=== PATIENT | female | born 1985 | race Caucasian/White ===

== ENCOUNTER 2024-03-12 08:40 | Emergency (ER) | payer BC ==
--- OUTSIDE RECORDS SUMMARY | 2024-03-12 08:43 | XMS REPORT | Continuity of Care Document ---
Author Name Unknown Address [address] [place] [address] thconnect Address [address] [facility] [address] [place] [address] Care Team Providers Care Cashier Self Service Gasoline Name Role Phone GC_GCBZW_Kadiyala_S Attending Clinician Unavaila ble GC_GCBZW_McIntire_E Attending Clinician Unavaila ble GC_GCBZW_Kadiyala_S Admitting Clinician Unavaila ble GC_GCBZW_McIntire_E Admitting Clinician Unavaila ble Payers Payer Name Policy Type Policy Number Effective Date Expirati on Date Source [place] [id number] 2019 00:00:00 Social History Smoking Status Start Date Stop Date Source Heavy Tobacco Smoker [facility] Medications Ordered Medication Name Filled Medication Name Start Date Stop Date Current Medication? Ordering Clinician Indication Dosage Frequency Signature (SIG) Comments Components Source ashwagandha extract ashwagandha extract No ashwagandh a extract [facility] ibuprofen 200 mg tablet Take 1 tablet every 6 hours by oral route. ibuprofen 200 mg tablet Take 1 tablet every 6 hours by oral route. No 1 Q6H ibuprofen 200 mg tablet Take 1 tablet every 6 hours by oral route. [facility] metronidazo le 500 mg tablet Take 1 tablet every 12 hours by oral route for 7 days. metronidazo le 500 mg tablet Take 1 tablet every 12 hours by oral route for 7 days. No 1 Q12H metronidaz ole 500 mg tablet Take 1 tablet every 12 hours by oral route for 7 days. [facility] ParaGard T 380A 380 square mm intrauterin e device Take by intrauterin e route. ParaGard T 380A 380 square mm intrauterin e device Take by intrauterin e route. No ParaGard T 380A 380 square mm intrauteri ne device Take by intrauteri ne route. [facility] Vital Signs Vital Name Observation Time Observation Value Comments S ource Height 2024-03-09 00:00:00 72 [in_i] [facility] Body Weight 2024-03-09 00:00:00 332.2 [lb_av] [facility] BMI (Body Mass Index) 2024-03-09 00:00:00 45.1 kg/m2 [facility] BP Systolic 2024-03-09 00:00:00 123 mm[Hg] [facility] BP Diastolic 2024-03-09 00:00:00 82 mm[Hg] [facility] Procedures Procedure Date / Time Performed Performing Clinicia n Source MAMMO, screening, digital, bilateral 2024-03-09 00:00:00 [facility] Encounters Start Date/Time End Date/Time Encounter Type Admission Type Attending Clinicians Care Facility Care Department Encounter ID Source 2024-03-09 00:00:00 2024-03-09 00:00:00 FRANCISCO JAVIER Hastings: [address] [place] [address] Dr Hutson, [address], [place] [address] , Ph. [facility] - GC_GCBZW_[facility]* [id number] [facility] [place] 2023-02-04 00:00:00 2023-02-04 00:00:00 Outpatient GC_GCBZW_Ka diyala_S [facility] [id number] [facility] [place] 2023-02-01 00:00:00 2023-02-01 00:00:00 Outpatient GC_GCBZW_Ka diyala_S [facility] [id number] [facility] [place] 2023-02-01 00:00:00 2023-02-01 00:00:00 Outpatient GC_GCBZW_Ka diyala_S [facility] [id number] [facility] [place] 2022-12-22 00:00:00 2022-12-22 00:00:00 Outpatient GC_GCBZW_Mc Intire_E [facility] [id number] [facility] [place] 2022-12-22 00:00:00 2022-12-22 00:00:00 Outpatient GC_GCBZW_Mc Intire_E PRIV PRIV [id number] [facility] Results Test Description Test Time Test Comments Results Result Co mments Source [facility] [place]
[2024-03-12 10:08] LABS: Absolute Basophils 0.1 K/uL (0-0.5); Absolute Eosinophils 0.4 K/uL (0-0.5); Absolute Monocytes 0.5 K/uL (0.1-1.3); Absolute Neutrophil 4.9 K/uL (1.8-8.0); Basophils % 0.7 % (0-1.3); Eosinophils % 4.8 % (0-4.4); Hematocrit 36.8 % (36.0-45.0); Lymphocytes % 25.1 % (15.3-44.8); MCH 27.1 pg (27.0-35.0); MCHC 32.6 g/dL (32.0-36.0); MPV 7.7 fL (7.6-11.3); Monocytes % 6.7 % (3.3-12.3); Neutrophils % 62.7 % (41.7-73.7); Nucleated Red Blood Cells % 0.1 % (0-0); Platelets 299 thou/uL (152-406); RBC Red Blood Cell Count 4.43 M/uL (3.86-4.86); Red Cell Distribution Width 14.4 % (12.1-15.2)
[2024-03-12 10:10] LABS: Specific Gravity < 1.005 (1.005-1.030)
[2024-03-12 10:11] LABS: Specific Gravity < 1.005 (1.005-1.030); Sqamous Epithelial None Seen /HPF (None Seen); Urine Bacteria <20 /HPF (<20); Urine Bilirubin NEGATIVE (Negative); Urine Blood Negative (Negative); Urine Clarity Clear (Clear); Urine Color Colorless (Yellow); Urine Culture Reflex Order NOT NEEDED; Urine Glucose NEGATIVE (Negative); Urine Ketones NEGATIVE (Negative); Urine Microscopic Reflex YN ORDER UMIC; Urine Nitrite NEGATIVE (Negative); Urine Protein NEGATIVE (Negative); Urine RBC None Seen /HPF (None Seen); Urine Urobilinogen Normal (Normal); Urine WBC None Seen /HPF (<5); Urine pH 6.5 (5.0-7.0)
[2024-03-12 10:34] LABS: Albumin 3.4 g/dL (3.4-5.0); Albumin/Globulin Ratio 0.9 (1.1-1.8); Bilirubin Total 0.3 mg/dL (0.2-1.0); Globulin 3.9 g/dL (2.3-3.5); Protein, Total 7.3 g/dL (6.4-8.2)
--- NOTE | 2024-03-12 10:47 | RAD REPORT ---
EXAMINATION: CT ABDOMEN AND PELVIS WITH CONTRAST CLINICAL INDICATION: ABD PAIN TECHNIQUE: CT abdomen and pelvis was performed, after the administration of IV contrast, as per [facility] protocol. Axial, sagittal and coronal reconstructions were obtained. One or more of the following dose reduction techniques were used: Automated exposure control, adjustment of the mA and k V according to patient size, and iterative reconstruction. Unless otherwise specified, incidental findings do not require dedicated imaging follow-up. COMPARISON: No prior exam. FINDINGS: LOWER CHEST: Calcified granuloma is seen in the right lung base laterally. LIVER: Normal in size and contour. No focal lesion. Cholelithiasis. SPLEEN: Normal size. No focal lesion. PANCREAS: No mass, ductal dilation, or diane-pancreatic fluid. ADRENALS: Normal; no mass. KIDNEYS: Normal size and contour. No hydronephrosis. GASTROINTESTINAL TRACT: No evidence of free air, significant intra-abdominal free fluid, bowel obstru ction or abscess. APPENDIX: Normal appendix. LYMPH NODES: No lymphadenopathy. MUSCULOSKELETAL: Mild lower lumbar degenerative changes. ADDITIONAL FINDINGS: IUD is noted. IMPRESSION: No acute or concerning abnormalities seen in the abdomen or pelvis. Cholelithiasis.
--- NOTE | 2024-03-12 11:01 | EDPHYS ---
Physician Documentation [facility] Lion Name: Chiquis Blue Age: 39 yrs Sex: Female : 1985 Arrival Date: 03/12/2024 Time: 08:40 Bed 15 Private MD: ED Physician Stephen José HPI: 03/12 09:15 This 39 yrs old Female presents to ER via Ambulatory with complaints of Abdominal ms3 Cramping. 09:15 39-year-old female with no past medical history presents to the emergency department ms3 for lower abdominal pain/cramping. Patient states the discomfort is 6/10 began at 7:30 AM. She denies any alleviating or inciting factors.. 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 - Infectious Disease History:: Denies. - Social history:: Smoking status: Patient reports the use of cigarette tobacco products, Reported history of juuling and/or vaping. ROS: 09:15 Constitutional: Negative for fever, and chills. Neck: Negative for injury, pain, and ms3 swelling, Cardiovascular: Negative for chest pain, and palpitations. Respiratory: Negative for shortness of breath, cough, wheezing, and pleuritic chest pain, 09:15 MS/Extremity: Negative for injury and deformity, Skin: Negative for injury, rash, and discoloration, 09:15 Abdomen/GI: Positive for abdominal pain, Exam: 09:15 Constitutional: This is a well developed, well nourished patient who is awake, alert, ms3 and in no acute distress. Head/Face: Normocephalic, atraumatic. Chest/axilla: Normal chest wall appearance and motion. Nontender with no deformity. Cardiovascular: Regular rate and rhythm with a normal S1 and S2. No gallops, murmurs, or rubs. Normal PMI, no JVD. No pulse deficits. Respiratory: Lungs have equal breath sounds bilaterally, clear to auscultation and percussion. No rales, rhonchi or wheezes noted. No increased work of breathing, no retractions or nasal flaring. 09:15 MS/ Extremity: Pulses equal, no cyanosis. Neurovascular intact. Full, normal range of motion. 09:15 Abdomen/GI: Inspection: abdomen appears normal, Bowel sounds: normal, Palpation: mild abdominal tenderness, in the right lower quadrant, Vital Signs: 08:58 BP 129 / 96; Pulse 77; Resp 18; Temp 98.1; Pulse Ox 100% on R/A; Weight 149.69 kg; iw Height 6 ft. 0 in. ; Pain 5/10; 11:34 BP 122 / 78; Pulse 72; Resp 18; Temp 97.8; Pulse Ox 100% on R/A; ph 08:58 Body Mass Index 44.76 (149.69 kg, 182.88 cm) iw 08:58 Pain Scale: Adult iw MDM: 09:15 Differential diagnosis: Appendicitis versus ovarian cyst versus diverticulitis. ms3 09:18 Medical Screening Exam initiated ms3 11:02 Data reviewed: vital signs, nurses notes, lab test result(s), radiologic studies, and ms3 as a result, I will discharge patient. Counseling: I had a detailed discussion with the patient and/or guardian regarding the historical points, exam findings, and any diagnostic results supporting the discharge/admit diagnosis, lab results, radiology results, the need for outpatient follow up, to return to the emergency department if symptoms worsen or persist or if there are any questions or concerns that arise at home. Special discussion: Based on the patient's Hx, exam, and Dx evaluation, there is no indication for emergent surgery or inpatient Tx. It is understood by the patient/guardian that if the Sx's persist or worsen they need to return immediately for re-evaluation. ED course: Discussed CT and labs with patient. Patient to follow-up with primary care physician in 2 to 3 days. Patient understands and agrees with plan. All questions were answered. Return precautions discussed include worsening condition or any other concerns. On reevaluation patient symptoms improved, patient is alert and oriented x 4, no apparent distress, nontoxic-appearing, ambulatory number department, speaking full sentences. 03/12 09:15 Order name: CBC with Diff; Complete Time: 10:47 ms3 03/12 09:15 Order name: CMP; Complete Time: 10:47 ms3 03/12 09:15 Order name: Test, Urine; Complete Time: 10:47 ms3 03/12 09:15 Order name: Urinalysis w/ reflexes; Complete Time: 10:47 ms3 03/12 09:15 Order name: CT Abd/Pelvis - IV Contrast Only; Complete Time: 10:51 ms3 03/12 09:15 Order name: IV Saline Lock; Complete Time: 10:56 ms3 03/12 09:15 Order name: Labs collected and sent; Complete Time: 10:56 ms3 Administered Medications: No medications were administered Disposition Summary: 03/12/24 11:00 Discharge Ordered Notes: Location: Home ms3 Condition: Stable ms3 Diagnosis - Abdominal pain, unspecified ms3 Followup: ms3 - With: Sukhdev Kamara DO - When: 2 - 3 days - Reason: Recheck today's complaints Discharge Instructions: - Discharge Summary Sheet ms3 - Abdominal Pain, Adult ms3 Forms: - Medication Reconciliation Form ms3 - Antibiotic Education ms3 - Prescription Opioid Use ms3 - Patient Portal Instructions ms3 - Leadership Thank You Letter ms3 Signatures: Dispatcher [employer] Anel Dooley, RN RN Stephen Klein DO DO ms3 Corrections: (The following items were deleted from the chart) 09:15 09:15 CBC+H.LAB.BRZ ordered. EDMS EDMS 09:15 09:15 COMPREHENSIVE METABOLIC PANEL+C.LAB.BRZ ordered. EDMS EDMS 09:15 09:15 Test, Urine+UC.LAB.BRZ ordered. EDMS EDMS 09:15 09:15 Urinalysis+U.LAB.BRZ ordered. EDMS EDMS 09:15 09:15 Abdomen Pelvis W Con+CT.RAD.BRZ ordered. EDMS EDMS
--- NOTE | 2024-03-12 11:01 | ER ---
Nurse's Notes [facility] Lion Name: Chiquis Blue Age: 39 yrs Sex: Female : 1985 Arrival Date: 03/12/2024 Time: 08:40 Bed 15 Private MD: Diagnosis: Abdominal pain, unspecified Presentation: 03/12 08:58 Chief complaint: Patient states: cramping in pelvic area since this morning, no urinary iw symptoms. Coronavirus screen: At this time, the client does not indicate any symptoms associated with coronavirus-19. Ebola Screen: No symptoms or risks identified at this time. Initial Sepsis Screen: Does the patient meet any 2 criteria? No. Patient's initial sepsis screen is negative. Does the patient have a suspected source of infection? No. Patient's initial sepsis screen is negative. Risk Assessment: Do you want to hurt yourself or someone else? Patient reports no desire to harm self or others. Onset of symptoms was March 12, 2024. 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 - Infectious Disease History:: Denies. - Social history:: Smoking status: Patient reports the use of cigarette tobacco products, Reported history of juuling and/or vaping. Screenin:11 [facility] ED Fall Risk Assessment (Adult) History of falling in the last 3 months, ph including since admission No falls in past 3 months (0 pts) Confusion or Disorientation No (0 pts) Intoxicated or Sedated No (0 pts) Impaired Gait No (0 pts) Mobility Assist Device Used No (0 pt) Altered Elimination No (0 pt) Score/Fall Risk Level 0 - 2 = Low Risk Oriented to surroundings, Maintained a safe environment, Provided non-skid footwear, Hourly rounding (assess needs \T\ fall precautionary measures) done. Abuse screen: Denies threats or abuse. Denies injuries from another. Nutritional screening: No deficits noted. Tuberculosis screening: No symptoms or risk factors identified. Assessment: 09:30 General: Appears in no apparent distress. comfortable, Behavior is calm, cooperative, ph appropriate for age. Pain: Complains of pain in suprapubic area. Neuro: Level of Consciousness is awake, alert, obeys commands, Oriented to person, place, time, situation. Cardiovascular: Capillary refill < 3 seconds in bilateral fingers Patient's skin is warm and dry. Respiratory: Airway is patent Respiratory effort is even, unlabored, Respiratory pattern is regular, symmetrical. GI: Abdomen is non-distended, Bowel sounds present X 4 quads. Abd is soft X 4 quads Reports cramping, Patient currently denies nausea, vomiting. Derm: Skin is pink, warm \T\ dry. Musculoskeletal: Circulation, motion, and sensation intact. Range of motion: intact in all extremities. 11:34 Reassessment: Patient appears in no apparent distress at this time. Patient and/or ph family updated on plan of care and expected duration. Pain level reassessed. Patient is alert, oriented x 3, equal unlabored respirations, skin warm/dry/pink. Vital Signs: 08:58 BP 129 / 96; Pulse 77; Resp 18; Temp 98.1; Pulse Ox 100% on R/A; Weight 149.69 kg; iw Height 6 ft. 0 in. ; Pain 5/10; 11:34 BP 122 / 78; Pulse 72; Resp 18; Temp 97.8; Pulse Ox 100% on R/A; ph 08:58 Body Mass Index 44.76 (149.69 kg, 182.88 cm) iw 08:58 Pain Scale: Adult iw ED Course: 08:42 Patient arrived in ED. mr 08:46 Stephen José DO is Attending Physician. ms3 08:59 Triage completed. iw 09:00 Arm band placed on. iw 09:09 Niurka Banks, RN is Primary Nurse. ph 09:11 Patient has correct armband on for positive identification. Bed in low position. Call ph light in reach. Side rails up X 1. Pulse ox on. NIBP on. Door closed. Noise minimized. 10:05 Initial lab(s) drawn, by ED staff, sent to lab. Urine collected: clean catch specimen, ph clear. Inserted saline lock: 20 gauge in right antecubital area, using aseptic technique. Blood collected. Flushed with 10 mL NS. 10:18 CT Abd/Pelvis - IV Contrast Only In Process Unspecified. EDMS 11:00 Sukhdev Kamara DO is Referral Physician. ms3 11:34 No provider procedures requiring assistance completed. IV discontinued, intact, ph bleeding controlled, No redness/swelling at site. Pressure dressing applied. Administered Medications: No medications were administered Medication: 09:11 VIS not applicable for this client. ph Outcome: 11:00 Discharge ordered by MD. ms3 11:35 Discharged to home ambulatory, ph 11:35 Condition: good 11:35 Discharge instructions given to patient, Instructed on discharge instructions, follow up and referral plans. Demonstrated understanding of instructions, follow-up care, 11:35 Patient left the ED. ph Signatures: Dispatcher [employer] EDWV Yvonne Stark, Reg Reg mr Anel Layton, RN JENNIFER Niurka Banks RN RN Stephen José DO DO ms3 Corrections: (The following items were deleted from the chart) 11:00 10:58 General: Appears in no apparent distress. ph ph
[2024-03-12 11:53] VITALS: O2SAT 100
[2024-03-12 11:55] VITALS: BP 122/78; TEMP 97.8
== END 2024-03-12 11:35 | disposition home or self-care (01) ==
LOC: ER 08:40
DX: R10.31 Right lower quadrant pain (principal); Z72.0 Tobacco use
CPT/HCPCS: 85025; 81001; 36415; 81025; 80053; 74177; Q9967; 99284